=== PATIENT | male | born 1970 | race Caucasian/White ===

== ENCOUNTER 2018-06-29 16:34 | Outpatient (CLI) | payer BC ==
[2018-06-29 17:29] LABS: Alanine Aminotransferase 19 units/L (7-56); Albumin 4.5 g/dL (3.9-5); BUN/Creatinine Ratio 19; Blood Urea Nitrogen 15 mg/dL (9-20); Calcium 9.2 mg/dL (8.4-10.2); Chol/HDL Ratio 4.41 %; HDL Cholesterol 39 mg/dL (40-59); Hemolysis Index 6; LDL Cholesterol,Direct 144 mg/dL (50-130)
== END 2018-06-29 16:35 | disposition home or self-care (01) ==
LOC: LAB 16:34
PROVIDERS: ATTEND Internal Medicine
DX: Z00.01 Encounter for general adult medical examination with abnormal findings (principal); N40.0 Benign prostatic hyperplasia without lower urinary tract symptoms; E78.5 Hyperlipidemia, unspecified; R73.9 Hyperglycemia, unspecified; N52.9 Male erectile dysfunction, unspecified
CPT/HCPCS: 36415; 80053; 80061; 82306; 82607; 83036; 84153; 84443

== ENCOUNTER 2019-12-19 10:24 | Outpatient (CLI) | payer BC ==
--- NOTE | 2019-12-19 11:21 | Cat Scan Report ---
CT ABDOMEN AND PELVIS WITHOUT CONTRAST HISTORY: N52.1Erectile dysfunction due to diseases classified elsewhere COMPARISON: None. TECHNIQUE: Axial CT images were obtained through the abdomen and pelvis without IV contrast. Sagittal and coronal reformatted images. All CT scans at this location are performed using CT dose reduction for ALARA by means of automated exposure control. FINDINGS: CT ABDOMEN: Lung Bases: Clear. Liver: No significant abnormality. Biliary: No significant abnormality. Spleen: No significant abnormality. Unenlarged. Pancreas: No significant abnormality. Adrenals: No significant abnormality. Kidneys: There are a few punctate renal calyceal stones in both kidneys. The kidneys are normal size, contour and position. No focal renal lesion or hydronephrosis. The ureters are normal course and sera iber. Lymphatics: No lymphadenopathy. Vasculature: No significant abnormality. Bowel/Peritoneum: No significant abnormality. No free air. No free fluid. Mild sigmoid diverticulosis is noted. Normal appendix. CT PELVIS: : The bladder, distal ureters and prostate gland are unremarkable. Osseous Structures: No significant abnormality. Additional Findings: Very small left inguinal hernia containing fat. IMPRESSION: Bilateral nephrolithiasis as described. No hydronephrosis. Mild sigmoid diverticulosis. Small left inguinal hernia containing fat. Signer Name: Leland Ribera Jr, MD Signed: 12/19/2019 11:16 AM Workstation Name: [id number]
== END 2019-12-19 10:25 | disposition home or self-care (01) ==
LOC: CT 10:24
PROVIDERS: ATTEND Urology
DX: N20.0 Calculus of kidney (principal); K57.30 Diverticulosis of large intestine without perforation or abscess without bleeding; K40.90 Unilateral inguinal hernia, without obstruction or gangrene, not specified as recurrent; N52.1 Erectile dysfunction due to diseases classified elsewhere
CPT/HCPCS: 74176